=== PATIENT | female | born 1990 | race Caucasian/White ===

== ENCOUNTER 2020-02-24 07:03 | Emergency (ER) | payer BC ==
[~2020-02-24] VITALS: Ht 157.5 cm; Wt 71.7 kg
[2020-02-24 07:19] VITALS: BP 141/80
--- NOTE | 2020-02-24 07:19 | NUR ---
PT AMBULATED TO BED 8, STEADY GAIT.
--- NOTE | 2020-02-24 07:29 | NUR ---
29 Y/F CO ANXIETY/ STRESS X 1 WEEK, REPORTS N/V, LOSS OF APPETITE, DENIES FEVER. PMH- ANEMIA, DEPRESSION RX- SERTRALINE NKDA
--- NOTE | 2020-02-24 07:31 | NUR ---
Dr. Ken is evaluating the patient at bedside.
[2020-02-24 07:41] VITALS: BP 141/80
== END 2020-02-24 07:42 | disposition home or self-care (01) ==
LOC: MED 07:03
DX: F10.239 Alcohol dependence with withdrawal, unspecified (principal); F32.9 Major depressive disorder, single episode, unspecified; F41.9 Anxiety disorder, unspecified; R03.0 Elevated blood-pressure reading, without diagnosis of hypertension; R05 Cough; D64.9 Anemia, unspecified
CPT/HCPCS: 99283